=== PATIENT | male | born 1970 | race Caucasian/White ===

== ENCOUNTER 2017-09-05 14:24 | Emergency (ER) | END 2017-09-05 15:42 | disposition home or self-care (01) ==

== ENCOUNTER 2018-03-21 15:04 | Emergency (ER) | END 2018-03-21 19:12 | disposition home or self-care (01) ==

== ENCOUNTER 2018-07-03 18:04 | Emergency (ER) | payer OTHER ==
[~2018-07-03] VITALS: Ht 167.6 cm; Wt 63.6 kg
[~2018-07-03 18:04] MED LIST: BISM-34 PO; CEPH-443 PO; ONDA4TAB14 PO; SULF1TAB31 PO
[2018-07-03 18:15] VITALS: Ht 167.6 cm; Wt 63.6 kg
[2018-07-03] MEDS ORDERED: HALOPERIDOL 5 MG INJ IM ONE (20:00)
--- NOTE | 2018-07-03 20:17 | ERD ---
ER Documentation Chief Complaint Chief Complaint R889, bilateral ankle pain, injected meth in ankles HPI 48-year-old man with a history of drug abuse injected methamphetamine into his ankles and has had increasing agitation and complaints of bilateral lower extremity pain. ROS All systems reviewed and are negative except as per history of present illness. Medications Home Meds Active Scripts Naproxen* (Naprosyn*) 500 Mg Tablet, 500 MG PO BID PRN for PAIN AND/OR INFLAMMATION, #30 TAB Prov:ALEISHA QUISPE MD 07/03/18 Bismuth Subsalicylate* (Bismuth Subsalicylate*) 262 Mg/15 Ml Oral.susp, 15 ML PO Q6 PRN for DIARRHEA, #1 BOTTLE Prov:TONIO NIETO PA-C 03/21/18 Ondansetron (Ondansetron Odt) 4 Mg Tab.rapdis, 4 MG PO Q6H PRN for NAUSEA AND/OR VOMITING, #10 TAB Prov:TONIO NIETO PA-C 03/21/18 Sulfamethoxazole/Trimethoprim* (Bactrim Ds* Tablet) 1 Each Tablet, 1 TAB PO BID, #14 TAB Prov:DL MISTRY PA-C 09/05/17 Cephalexin* (Keflex*) 500 Mg Capsule, 500 MG PO QID for 7 Days, CAP Prov:DL MISTRY PA-C 09/05/17 Allergies Allergies: Coded Allergies: No Known Allergy (Unverified , 10/29/12) PMhx/Soc History of Surgery: No Anesthesia Reaction: No Hx Neurological Disorder: No Hx Respiratory Disorders: No Hx Cardiac Disorders: No Hx Psychiatric Problems: No Hx Miscellaneous Medical Probl: Yes (hep C) Hx Alcohol Use: Yes Hx Substance Use: Yes Hx Tobacco Use: Yes Physical Exam Vitals Vital Signs Date Temp Pulse Resp B/P (MAP) Pulse Ox O2 O2 Flow FiO2 Time Delivery Rate 07/03/18 98.9 102 22 147/78 96 Room Air 22:11 (101) 07/03/18 98.9 85 18 143/84 100 Room Air 20:57 (103) 07/03/18 98.9 114 23 159/110 100 Room Air 20:03 (126) 07/03/18 98.9 91 18 163/83 99 18:15 (109) Physical Exam Const: Appears agitated, afebrile Head: Atraumatic Eyes: Normal Conjunctiva ENT: Normal External Ears, Nose and Mouth. Neck: Full range of motion. No meningismus. Resp: Clear to auscultation bilaterally Cardio: Regular rate and rhythm, no murmurs Abd: Soft, non tender, non distended. Normal bowel sounds Skin: No petechiae or rashes. Excoriations over the lower legs bilaterally, superficial ulcerations without purulent discharge, no abscess or cellulitic changes noted Back: No midline or flank tenderness Ext: No cyanosis, or edema Neur: Awake and alert x3, no focal deficits or facial asymmetry, moving all extremities Psych: Agitated Results 24 hrs Current Medications Medications Dose Sig/Harjinder Start Time Status Last (Trade) Ordered Route PRN Stop Time Admin Dose Reason Admin Haloperidol 5 mg ONCE ONCE 07/03/18 DC 07/03/18 (Haldol) IM 20:00 20:13 07/03/18 20:01 Ketorolac 30 mg ONCE STAT 07/03/18 DC 07/03/18 Tromethamine IM 20:33 20:57 (Toradol) 07/03/18 20:34 Olanzapine 10 mg ONCE ONCE 07/03/18 DC (Zyprexa) IM 21:00 07/03/18 21:01 Procedures/MDM I administered haloperidol 5 mg IM x1 and Toradol 30 mg IM x1 for pain. 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 He has no signs of infection and denied suicidal or homicidal ideation. His pain and symptoms are controlled in the emergency department and he will be discharged when he is ambulatory. Differential diagnoses considered, included but not limited to acute coronary syndrome, pulmonary embolism, aortic dissection, abdominal aortic aneurysm, sepsis, stroke, meningitis, encephalitis, pneumonia, appendicitis, cholecystitis, bowel obstruction, pyelonephritis, nephrolithiasis, cystitis, as well as metabolic, hematologic, and electrolyte abnormalities. As well as abscess, cellulitis, fractures, and dislocations. Patient feels much better at this time, and vital signs are normal, symptoms have improved. I did give strict instructions to return to the ED if symptoms continue or worsen, patient will otherwise follow-up with primary care physici an. Patient understood instructions and agreed to plan. Disclaimer: Inadvertent spelling and grammatical errors are likely due to EHR/dictation software use and do not reflect on the overall quality of patient care. Also, please note that the electronic time recorded on this note does not necessarily reflect the actual time of the patient encounter. Departure Diagnosis: Primary Impression: Drug abuse Additional Impression: Bilateral leg pain Condition: Good ALEISHA QUISPE MD Jul 03, 2018 20:17
[2018-07-03] MEDS ORDERED: KETOROLAC 30 MG INJ IM STA (20:33)
[2018-07-03] MEDS ORDERED: NAPR-985 PO (20:51)
[2018-07-03] MEDS ORDERED: OLANZAPINE 10 MG VIAL IM ONE (21:00)
[2018-07-04 02:10] VITALS: BP 136/85; PULSE 103; RESP 12
== END 2018-07-04 02:33 | disposition home or self-care (01) ==
LOC: E/R 18:04
DX: F15.10 Other stimulant abuse, uncomplicated (principal); M25.572 Pain in left ankle and joints of left foot; Z87.891 Personal history of nicotine dependence
CPT/HCPCS: 96372; J1630; J1885; Z7502; Z7610